=== PATIENT | female | born 1965 | race Caucasian/White ===

== ENCOUNTER 2021-09-22 10:05 | Emergency (ER) | payer OTHER ==
[2021-09-22 10:20] VITALS: BMI 39.4
[2021-09-22 12:00] LABS: BASO % 0.8 % (0-2.0); EOS % 2.2 % (0-4.5); HEMATOCRIT 36.1 % (32.4-45.2); HEMOGLOBIN 11.5 GM/dL (10.7-15.3); LYMPH % 29.3 % (8-40); MCHC 31.9 g/dl (32.0-36.0); MEAN CELL VOLUME 87.6 fl (80-96); MEAN PLT VOLUME 9.1 fl (7.5-11.1); MONO % 5.7 % (3.8-10.2); PLATELET COUNT 186 10^3/uL (134-434); RBC 4.12 M/mm3 (3.60-5.2); RDW 17.3 % (11.6-15.6); WHITE BLOOD COUNT 10.2 K/mm3 (4.0-10.0)
[2021-09-22] MEDS ORDERED: morphine CARPU-JECT 4 MG/1 ML DISP.SYRIN IVPUSH ONE (12:46)
[2021-09-22] MEDS ORDERED: morphine SULFATE 4 MG/ML VIAL ONE (12:50)
[2021-09-22 13:13] LABS: ALBUMIN 3.8 g/dl (3.4-5.0); CALCIUM 9.3 mg/dL (8.5-10.1); CREATININE 0.6 mg/dL (0.55-1.3); TOT PROT 7.8 g/dl (6.4-8.2)
[2021-09-22 14:13] LABS: BILIRUBIN,TOTAL 0.3 mg/dL (0.2-1)
[2021-09-22 15:15] VITALS: BP 122/78; PULSE 78; TEMP 98.6
== END 2021-09-22 15:15 | disposition home or self-care (01) ==
LOC: JERFT 10:05
PROC: 3E033NZ Introduction of Analgesics, Hypnotics, Sedatives into Peripheral Vein, Percutaneous Approach (ICD-10-PCS; principal; 2021-09-22)
DX: R07.82 Intercostal pain (principal); W01.0XXA Fall on same level from slipping, tripping and stumbling without subsequent striking against object, initial encounter; Y92.003 Bedroom of unspecified non-institutional (private) residence as the place of occurrence of the external cause
CPT/HCPCS: 36415; 71046-TC-FY; 71101-TC-RT-FY; 71260-TC; 73110-TC-LT-FY; 74177-TC; 76604; 76705-TC; 80053; 85025; 93308; 99285-25; Q9967

== ENCOUNTER 2023-05-26 10:41 | Observation (INO) | payer OTHER ==
[2023-05-26] MEDS ORDERED: ALBUTEROL SO4 2.5/IPRATROPIUM 0.5 INH SOL 3 ML VIAL.NEB. NEB ONE ×2 (11:49→12:12)
[2023-05-26] MEDS ORDERED: methylPREDNISolone NA SUCC 125 MG/2 ML VIAL IVPB ONE (11:49)
[2023-05-26] MEDS ORDERED: methylPREDNISolone NA SUCC 125 MG/2 ML VIAL ONE (12:12)
[2023-05-26 12:29] LABS: BASO % 1.1 % (0-2.0); EOS % 6.3 % (0-4.5); HEMATOCRIT 40.2 % (32.4-45.2); HEMOGLOBIN 13.1 GM/dL (10.7-15.3); INR 1.1 (0.83-1.09); LYMPH % 27.8 % (8-40); MCH 29.9 pg (25.7-33.7); MCHC 32.7 g/dl (32.0-36.0); MEAN CELL VOLUME 91.7 fl (80-96); MEAN PLT VOLUME 9.2 fl (7.5-11.1); NEUT % 58.8 % (42.8-82.8); PLATELET COUNT 201 10^3/uL (134-434); PROTHROMBIN TIME (PATIENT) 12.7 SEC (9.7-13.0); RBC 4.39 M/mm3 (3.60-5.2); RDW 13.7 % (11.6-15.6); WHITE BLOOD COUNT 11.1 K/mm3 (4.0-10.0)
[2023-05-26 12:32] LABS: ACTIVATED PTT 30.5 SECONDS (25.2-36.5)
[2023-05-26 12:48] LABS: POTASSIUM 4.3 mmol/L (3.5-5.1)
[2023-05-26 12:50] LABS: ALBUMIN 3.9 g/dl (3.4-5.0); BLOOD UREA NITROGEN 17.3 mg/dL (7-18); CALCIUM 9.3 mg/dL (8.5-10.1); MAGNESIUM 2.1 mg/dL (1.8-2.4)
[2023-05-26 12:53] LABS: CREATININE 0.7 mg/dL (0.55-1.3)
[2023-05-26 12:55] LABS: BILIRUBIN,TOTAL 0.3 mg/dL (0.2-1); TOT PROT 7.8 g/dl (6.4-8.2)
[2023-05-26] MEDS ORDERED: MAGNESIUM SULFATE IN WATER 2 GM/50 ML IVPB IVPB ONE (15:51)
[2023-05-26] MEDS ORDERED: MAGNESIUM 1GM/D5W - 1 GM/100 ML IVPB IVPB ONE (16:31)
[2023-05-26] MEDS ORDERED: ALBUTEROL SO4 0.083% IH SOL 2.5 MG/3 ML VIAL.NEB. NEB ONE (17:45)
[2023-05-26] MEDS: ALBUTEROL SO4 0.083% IH SOL 2.5 MG/3 ML VIAL.NEB. NEB SCH ×2 (17:53→18:06)
[2023-05-27] MEDS ORDERED: methylPREDNISolone NA SUCC 1000 MG/8 ML VIAL IVPB SCH (02:30)
[2023-05-27 02:47] VITALS: BMI 39.4
[2023-05-27] MEDS: methylPREDNISolone NA SUCC 40 MG/1 ML VIAL IVPB SCH ×2 (03:20→09:54)
[2023-05-27] MEDS ORDERED: ACETAMINOPHEN 325 MG TABLET (FP) PO PRN ×2 (05:56→13:17)
[2023-05-27] MEDS: ALBUTEROL SO4 2.5/IPRATROPIUM 0.5 INH SOL 3 ML VIAL.NEB. NEB SCH ×4 (07:30→20:29)
[2023-05-27 08:32] LABS: BASO % 0.2 % (0-2.0); HEMATOCRIT 40.1 % (32.4-45.2); HEMOGLOBIN 13.2 GM/dL (10.7-15.3); LYMPH % 13.9 % (8-40); MCH 30.1 pg (25.7-33.7); MCHC 32.9 g/dl (32.0-36.0); MEAN CELL VOLUME 91.5 fl (80-96); MEAN PLT VOLUME 8.9 fl (7.5-11.1); MONO % 0.8 % (3.8-10.2); NEUT % 85.1 % (42.8-82.8); PLATELET COUNT 214 10^3/uL (134-434); RBC 4.38 M/mm3 (3.60-5.2); WHITE BLOOD COUNT 9.3 K/mm3 (4.0-10.0)
[2023-05-27 08:46] LABS: POTASSIUM 5.2 mmol/L (3.5-5.1)
[2023-05-27 08:52] LABS: CALCIUM 9.6 mg/dL (8.5-10.1)
[2023-05-27 08:53] LABS: ALBUMIN 3.8 g/dl (3.4-5.0); BLOOD UREA NITROGEN 22.9 mg/dL (7-18); MAGNESIUM 2.2 mg/dL (1.8-2.4)
[2023-05-27 08:56] LABS: CREATININE 0.9 mg/dL (0.55-1.3)
[2023-05-27 08:57] LABS: BILIRUBIN,TOTAL 0.3 mg/dL (0.2-1); TOT PROT 7.8 g/dl (6.4-8.2)
[2023-05-27] MEDS: ENOXAPARIN NA (PORCINE) 40 MG/0.4 ML DISP.SYRIN SQ SCH (09:54)
[2023-05-27] MEDS: BUDESONIDE/FORMETEROL FUMARATE 80/4.5 mcg INHALER IH SCH ×2 (11:52→21:25)
[2023-05-27] MEDS: INSULIN SLIDING SCALE (NOVOLOG) 1 VIAL SQ SCH ×3 (11:53→21:24)
[2023-05-27] MEDS ORDERED: ACETAMINOPHEN 325 MG TABLET (FP) PO ONE (14:00)
[2023-05-27] MEDS: MONTELUKAST NA 10 MG TABLET PO SCH (21:20)
[2023-05-27] MEDS: ATORVASTATIN CA 20 MG TABLET (FP) PO SCH (21:20)
[2023-05-27 21:51] LABS: EPI CELLS 7 /uL (0-25.1); HYALINE CASTS 0 /uL (0-3.1); PH,URINE 6.5 (5.0-8.0); URINE APPEARANCE CLEAR; URINE BACTERIA 32 /uL (0-1359); URINE BILIRUBIN NEGATIVE (NEGATIVE); URINE COLOR YELLOW; URINE GLUCOSE (UA) TRACE (NEGATIVE); URINE KETONE NEGATIVE (NEGATIVE); URINE LEUK ESTERASE TRACE (NEGATIVE); URINE NITRITE NEGATIVE (NEGATIVE); URINE PROTEIN NEGATIVE (NEGATIVE); URINE RBC 12 /uL (0-23.9); URINE UROBILINOGEN 0.2 mg/dL (0.2-1.0); URINE WBC 4 /uL (0-25.8)
[2023-05-28] MEDS: LORATADINE 10 MG TABLET PO SCH (07:06)
[2023-05-28] MEDS: CHLORTHALIDONE 25 MG TABLET PO SCH (07:07)
[2023-05-28] MEDS: VALSARTAN 40 MG TABLET PO SCH (07:07)
[2023-05-28] MEDS: amLODIPine BESYLATE 5 MG TABLET (FP) PO SCH (07:07)
[2023-05-28] MEDS: INSULIN SLIDING SCALE (NOVOLOG) 1 VIAL SQ SCH ×4 (07:07→21:37)
[2023-05-28] MEDS: ALBUTEROL SO4 2.5/IPRATROPIUM 0.5 INH SOL 3 ML VIAL.NEB. NEB SCH ×4 (07:27→21:56)
[2023-05-28] MEDS: BUDESONIDE/FORMETEROL FUMARATE 80/4.5 mcg INHALER IH SCH ×2 (09:59→21:37)
[2023-05-28] MEDS: ENOXAPARIN NA (PORCINE) 40 MG/0.4 ML DISP.SYRIN SQ SCH (09:59)
[2023-05-28] MEDS: methylPREDNISolone NA SUCC 40 MG/1 ML VIAL IVPB SCH (10:00)
[2023-05-28] MEDS: MONTELUKAST NA 10 MG TABLET PO SCH (21:36)
[2023-05-28] MEDS: PREGABALIN 75 MG CAPSULE PO SCH (21:36)
[2023-05-28] MEDS: ATORVASTATIN CA 20 MG TABLET (FP) PO SCH (21:36)
[2023-05-29] MEDS: LORATADINE 10 MG TABLET PO SCH (06:22)
[2023-05-29] MEDS: amLODIPine BESYLATE 5 MG TABLET (FP) PO SCH (06:23)
[2023-05-29] MEDS: INSULIN SLIDING SCALE (NOVOLOG) 1 VIAL SQ SCH ×2 (06:23→11:24)
[2023-05-29] MEDS: CHLORTHALIDONE 25 MG TABLET PO SCH (06:23)
[2023-05-29] MEDS: VALSARTAN 40 MG TABLET PO SCH (06:23)
[2023-05-29] MEDS: ALBUTEROL SO4 2.5/IPRATROPIUM 0.5 INH SOL 3 ML VIAL.NEB. NEB SCH ×2 (08:20→12:47)
[2023-05-29 09:29] LABS: BASO % 0.6 % (0-2.0); EOS % 0.2 % (0-4.5); HEMATOCRIT 42.5 % (32.4-45.2); HEMOGLOBIN 14.5 GM/dL (10.7-15.3); LYMPH % 28.1 % (8-40); MCH 30.7 pg (25.7-33.7); MEAN CELL VOLUME 90.1 fl (80-96); MEAN PLT VOLUME 8.9 fl (7.5-11.1); MONO % 6.6 % (3.8-10.2); NEUT % 64.5 % (42.8-82.8); PLATELET COUNT 223 10^3/uL (134-434); RBC 4.72 M/mm3 (3.60-5.2); RDW 14.1 % (11.6-15.6)
[2023-05-29 09:47] LABS: POTASSIUM 4.3 mmol/L (3.5-5.1)
[2023-05-29 09:51] LABS: MAGNESIUM 2.2 mg/dL (1.8-2.4)
[2023-05-29 09:53] LABS: ALBUMIN 3.8 g/dl (3.4-5.0)
[2023-05-29 09:54] LABS: BLOOD UREA NITROGEN 19.3 mg/dL (7-18)
[2023-05-29 09:55] LABS: BILIRUBIN,TOTAL 0.5 mg/dL (0.2-1)
[2023-05-29 09:56] LABS: TOT PROT 8.1 g/dl (6.4-8.2)
[2023-05-29] MEDS: ENOXAPARIN NA (PORCINE) 40 MG/0.4 ML DISP.SYRIN SQ SCH (09:57)
[2023-05-29 09:58] LABS: CREATININE 0.8 mg/dL (0.55-1.3)
[2023-05-29] MEDS: PREGABALIN 75 MG CAPSULE PO SCH (09:58)
[2023-05-29] MEDS: BUDESONIDE/FORMETEROL FUMARATE 80/4.5 mcg INHALER IH SCH (09:58)
[2023-05-29] MEDS: methylPREDNISolone NA SUCC 40 MG/1 ML VIAL IVPB SCH (09:58)
[2023-05-29 10:39] VITALS: BP 136/78; PULSE 84; RESP 18; TEMP 98
== END 2023-05-29 12:23 | disposition home or self-care (01) ==
LOC: JER 10:41 → JERBED 18:01 → J7W 05-27 01:27
PROVIDERS: ADMIT Internal Medicine; ATTEND Internal Medicine
PROC: 3E0F7GC Introduction of Other Therapeutic Substance into Respiratory Tract, Via Natural or Artificial Opening (ICD-10-PCS; principal; 2023-05-26)
PROC: 3E023GC Introduction of Other Therapeutic Substance into Muscle, Percutaneous Approach (ICD-10-PCS; 2023-05-26)
PROC: 3E013VG Introduction of Insulin into Subcutaneous Tissue, Percutaneous Approach (ICD-10-PCS; 2023-05-26)
PROC: 3E033GC Introduction of Other Therapeutic Substance into Peripheral Vein, Percutaneous Approach (ICD-10-PCS; 2023-05-26)
DX: J45.901 Unspecified asthma with (acute) exacerbation (principal); I10 Essential (primary) hypertension; K21.9 Gastro-esophageal reflux disease without esophagitis; E78.5 Hyperlipidemia, unspecified; M79.7 Fibromyalgia; E11.9 Type 2 diabetes mellitus without complications; D50.9 Iron deficiency anemia, unspecified; Z96.652 Presence of left artificial knee joint; Z98.84 Bariatric surgery status; M81.0 Age-related osteoporosis without current pathological fracture; Z88.5 Allergy status to narcotic agent; Z91.013 Allergy to seafood; Z91.018 Allergy to other foods
CPT/HCPCS: 0241U-QW; 36415; 70491-TC; 71046-TC-FY; 71275-TC; 80053; 81003; 82550; 82962; 83735; 84100; 84443; 84484; 85025; 85379; 85610; 85730; 93005; 93010; 94150; 94640; 96365; 96372; 96375; 99285-25; G0378; Q9967

== ENCOUNTER 2025-02-02 19:36 | Emergency (ER) | payer OTHER ==
[2025-02-02 19:40] VITALS: BP 132/79; PULSE 85; RESP 20; TEMP 98.3; BMI 37.7
[2025-02-02] MEDS ORDERED: METHOCARBAMOL 500 MG TABLET ONE (20:32)
[2025-02-02] MEDS ORDERED: KETOROLAC TROMETHAMINE 15 MG/ML VIAL ONE (20:33)
[2025-02-02] MEDS: METHOCARBAMOL 500 MG TABLET PO ONE (20:37)
[2025-02-02] MEDS: KETOROLAC TROMETHAMINE 15 MG/ML VIAL IM ONE (20:37)
[2025-02-02 23:48] LABS: HCV DIAGNOSTIC IN-HOUSE W/RFLX NON-REACTIVE (NONREACTIVE)
[2025-02-04 18:50] LABS: HIV INTERPRETATION NEGATIVE (NEGATIVE)
== END 2025-02-03 00:09 | disposition home or self-care (01) ==
LOC: JERFT 19:36
PROC: 3E0233Z Introduction of Anti-inflammatory into Muscle, Percutaneous Approach (ICD-10-PCS; principal; 2025-02-02)
DX: S83.92XA Sprain of unspecified site of left knee, initial encounter (principal); S20.212A Contusion of left front wall of thorax, initial encounter; S50.02XA Contusion of left elbow, initial encounter; W01.0XXA Fall on same level from slipping, tripping and stumbling without subsequent striking against object, initial encounter; Y92.009 Unspecified place in unspecified non-institutional (private) residence as the place of occurrence of the external cause
CPT/HCPCS: 36415; 71101-TC-LT-FY; 73070-TC-LT-FY; 73562-TC-LT-FY; 86803; 87389; 96372; 99284-25